=== PATIENT | female | born 1985 | race Caucasian/White ===

== ENCOUNTER 2016-11-12 06:29 | Inpatient (IN) | payer OTHER ==
[2016-11-05 08:02] VITALS: BMI 32.0
--- NOTE | 2016-11-05 08:51 | PAT Medication Instructions ---
Service Date Nov 05, 2016. Current Home Medication List Mirtazapine Soltab (Remeron Soltab), 30 MG PO HS Pantoprazole (Protonix), 20 MG PO QAM Paroxetine (Paxil), 40 MG PO QAM Simvastatin (Zocor), 20 MG PO QAM Medication Instructions For Your Scheduled Surgery - Take the following medications the morning of surgery with a sip of water OTHERWISE NOTHING TO EAT OR DRINK AFTER MIDNIGHT: Paroxetine (Paxil), 40 MG PO QAM Simvastatin (Zocor), 20 MG PO QAM Pantoprazole (Protonix), 20 MG PO QAM - Take the following medications as scheduled the night before surgery: Mirtazapine Soltab (Remeron Soltab), 30 MG PO HS If you have any questions please call us at [phone] (Светлана Calle PA-C ) or [phone] or [phone]
[2016-11-05 09:39] LABS: BASO % 0.1 %; BASO ABS # 0.01 K/uL (0-0.2); COMPLETE YES; EOS % 0.5 %; HEMATOCRIT 43.8 % (37-47); IG% 0.3 %; LYMPH ABS # 1.89 K/uL (1.2-3.4); MEAN CELL VOLUME 92.4 fL (80-100); MEAN CORPUSCULAR HEMOGLOBIN 31.2 pg (25-34); MEAN CORPUSCULAR HGB CONC 33.8 g/dl (32-36); MEAN PLATELET VOLUME 10.7 fL (7.4-10.4); MONO % 9.3 %; NEUT % 69.8 %; PLATELET COUNT 141 K/uL (130-400); RED BLOOD COUNT 4.74 M/uL (4.2-5.4); WHITE BLOOD COUNT 9.46 K/uL (4.8-10.8)
--- NOTE | 2016-11-11 20:27 | HISTORY & PHYSICAL EXAMINATION ---
DATE OF ADMISSION: 11/12/2016 CHIEF COMPLAINT: Left ankle pain. HISTORY OF PRESENT ILLNESS: This is a patient who has had chronic left ankle pain. Previously, she had undergone a procedure for curettage and bone grafting of the tibia and talus. She had persistent worsening osteoarthritic changes of the left ankle and despite bracing and anti-inflammatory medicines, the pain has increased significantly and she is now being set up for an ankle fusion. PAST MEDICAL HISTORY: Hypercholesterolemia, anxiety and depression, history of diabetes, alcoholism, acid reflux, and obesity. FAMILY HISTORY: Noncontributory. SOCIAL HISTORY: The patient is a cigarette smoker. Denies alcohol use. She has been sober for approximately 2 years. PAST SURGICAL HISTORY: ORIF of left wrist and a left ankle surgery in 2014. ALLERGIES: No known drug allergies. CURRENT MEDICATIONS: Paxil, Remeron, simvastatin and Benadryl. OBJECTIVE PHYSICAL EXAMINATION: GENERAL: The patient is alert and oriented x3. She is in no acute distress. She is a well-dressed, well-nourished 30-year-old female. Her affect is appropriate. CARDIOVASCULAR: Heart has a regular rhythm and rate without murmurs. LUNGS: Clear to auscultation bilateral. EXTREMITIES: Dorsalis pedis, posterior tib pulse +2/4. Cap refill is less than 2 seconds. LYMPHATIC: No evidence of any swollen lymph nodes. MUSCULOSKELETAL: The patient has an antalgic gait favoring the left lower extremity. Upon inspection of left lower extremity, there is significant swelling noted. There is a well-healed surgical incision. The patient had limited range of motion and strength secondary to pain. There is crepitation noted with any range of motion of left ankle. NEUROLOGIC: Sensation normal and intact distally left ankle. X-RAY EXAM: Three views of the left ankle demonstrate severe osteoarthritic change of the left ankle. ASSESSMENT AND DIAGNOSIS: 1. Left ankle osteoarthritis. PLAN: Above assessment was discussed with the patient. At this time, it was recommended the patient undergo a left ankle fusion with possible iliac crest autograft harvest from the left side, also bone marrow aspirate harvest from the left iliac crest. All potential risks, benefits, complications, alternatives and rehab have been discussed with the patient. At this time, she wishes to proceed with the surgery as indicated. She will be scheduled for the surgery on 11/12/2016. JENNIFER
[~2016-11-12] VITALS: Ht 170.2 cm; Wt 93.4 kg
[~2016-11-12 06:29] MED LIST: BUPIVACAINE/EPINEPHRINE 0.25% 1:200,000 30 ML VIAL ONE; DEXAMETHASONE SOD INJ 4 MG/ML VIAL ONE; LACTATED RINGER'S 1000ML 1,000 ML IV SCH; MIRT30TA2 PO; PARO1TAB29 PO; PRT/20 PO; SIMV20TA2 PO
[2016-11-12] MEDS ORDERED: MIDAZOLAM HCL 1 MG/ML 2ML VIAL ONE (06:45)
[2016-11-12] MEDS ORDERED: FENTANYL CITRATE INJ 50 MCG/1 ML 2 ML VIAL ONE ×3 (06:45→10:51)
[2016-11-12 07:17] VITALS: BP 119/76; PULSE 99; TEMP 36.9; O2SAT 97; Ht 170.2 cm; Wt 93.4 kg
--- NOTE | 2016-11-12 07:29 | History & Physical Bridge Note ---
H&P Re-Evaluation Bridge Note: I have examined the patient, reviewed the History & Physical and in the interval since the performance of the History & Physical I have noted the following changes of clinical significance: No changes noted
[2016-11-12] MEDS ORDERED: CEFAZOLIN IV 2,000 MG/60 ML D5W IV ONE (07:47)
[2016-11-12] MEDS ORDERED: HYDROmorphone INJ 1 MG/ML SYR IV PRN (09:15)
[2016-11-12] MEDS ORDERED: ATROPINE SULFATE 0.1 MG/ML 5ML SYR IV PRN (09:15)
[2016-11-12] MEDS ORDERED: EpHEDrine SULFATE INJ 50 MG/ML AMP IV PRN (09:15)
[2016-11-12] MEDS ORDERED: ONDANSETRON INJ 2 MG/ML 2 ML VIAL IV PRN ×2 (09:15→11:45)
[2016-11-12] MEDS ORDERED: PROMETHAZINE HCL INJ 6.25 MG in SODIUM CHLORIDE 0.9% 50ML 50 ML IV PRN (09:15)
[2016-11-12] MEDS ORDERED: CALCIUM CHLORIDE 10% 10 ML SYR ONE (09:23)
[2016-11-12] MEDS ORDERED: LIDOCAINE HCL 2% 2 ML VIAL (20MG/ML) ONE (09:36)
[2016-11-12] MEDS ORDERED: SUCCINYLCHOLINE 100MG/5ML SYR IV ONE (09:36)
[2016-11-12] MEDS ORDERED: PROPOFOL IV EMULSION 10 MG/ML 20 ML VIAL IV ONE (09:36)
[2016-11-12] MEDS ORDERED: ALBUTEROL HFA INHALER 8.5 GM INH ONE (09:36)
[2016-11-12] MEDS ORDERED: ROCURONIUM BROMIDE 10 MG/ML 5 ML VIAL ONE (09:50)
[2016-11-12] MEDS ORDERED: MoRPHine SULFATE PF 1 MG/ML 10 ML AMP/VIAL ONE (10:13)
[2016-11-12] MEDS ORDERED: GELFOAM SIZE 100 TOP ONE (10:20)
[2016-11-12] MEDS ORDERED: THROMBIN 5,000 UNITS (BOVINE) TOP ONE ×2 (10:21→10:32)
[2016-11-12] MEDS ORDERED: CALCIUM CHLORIDE 10% XX ONE (10:27)
[2016-11-12] MEDS ORDERED: DURAMORPH 10 MG/10 ML INJ ONE (10:30)
[2016-11-12] MEDS ORDERED: BACITRACIN 50000 UNIT VIAL IR ONE (10:52)
[2016-11-12] MEDS ORDERED: BUPIVACAINE 0.5% W/EPI 1:200,000 INJ ONE (10:53)
--- NOTE | 2016-11-12 11:15 | [facility] Post Operative Brief Note ---
Immediate Operative Summary Operative Date Nov 12, 2016. Pre-Operative Diagnosis Left Ankle Degenerative Joint Disease, Avascular Necrosis Talus Post-Operative Diagnosis Left Ankle Degenerative Joint Disease, Avascular Necrosis Talus Procedure(s) Performed Left Ankle Arthrodesis with Autograft and Application of Arteriocyte Bone Marrow Aspirate, Left Iliac Crest Autograft [place], Left Bone Marrow Aspirate Left Iliac Crest Surgeon Dr. Silva House Mover Supervisor Surgeon(s) SERAFIN Cerda Estimated Blood Loss 25 ml Findings See Dict Specimens none per surgeon Drains HV x 1 Anesthesia GLMA w/ popliteal Complication(s) None Disposition Recovery Room / PACU
--- NOTE | 2016-11-12 11:21 | DIAGNOSTIC IMAGING REPORT ---
INTRAOPERATIVE LEFT ANKLE 2 VIEWS CLINICAL HISTORY: LT ANKLE ARTHODESIS COMPARISON STUDY: No previous studies for comparison. FINDINGS: 62 seconds of fluoroscopic time was utilized. 2 intraoperative fluoroscopic spot images are provided for interpretation. There are postsurgical changes of a left tibiotalar arthrodesis. There is been surgical resection of the distal fibula. Tibiotalar joint is traversed by 2 cannulated screws. IMPRESSION: Intraoperative radiographs demonstrating a left ankle arthrodesis. Electronically signed by: Lior Arshad M.D. 11/12/2016 11:19 AM Dictated Date/Time: 11/12/2016 11:18 AM
[2016-11-12] MEDS: FENTANYL CITRATE INJ 50 MCG/1 ML 2 ML VIAL IV PRN ×3 (11:30→11:40)
[2016-11-12] MEDS ORDERED: MoRPHine SULFATE 2 MG/ML CARP IV PRN (11:45)
[2016-11-12] MEDS ORDERED: MAGNESIUM HYDROXIDE SUSP 30 ML UDC PO PRN (11:45)
[2016-11-12] MEDS ORDERED: ALUMINUM/MAGNESIUM/SIMETH (MAALOX MAX) 30 ML UDC PO PRN (11:45)
[2016-11-12] MEDS ORDERED: ZOLPIDEM TARTRATE 5 MG TAB PO PRN (11:45)
[2016-11-12] MEDS ORDERED: BISACODYL 10 MG SUPP PR PRN (11:45)
[2016-11-12] MEDS ORDERED: OXYCODONE/ACETAMINOPHEN 5-325 TAB PO PRN (11:45)
[2016-11-12] MEDS ORDERED: SOD PHOSPHATE/SOD BIPHOSPHATE ENEMA 132 ML BTL PR PRN (11:45)
[2016-11-12] MEDS ORDERED: NO NSAIDS SCH (11:45)
--- NOTE | 2016-11-12 11:50 | Discharge Instructions ---
Discharge Instructions Admission Reason for Admission: Left Ankle Osteoarthritis Discharge Discharge Diagnosis / Problem: left ankle osteoarthritis Discharge Goals Goal(s): Decrease discomfort Activity Recommendations Activity Limitations: as noted below Lifting Limitations: until after follow-up appointment Exercise/Sports Limitations: until after follow-up appointment May Resume Sexual Activity: when tolerated Shower/Bathe: keep incision dry (Keep dressing/splint in place until follow up in 2 weeks. May remove pelvis dressing after 5 days.) Driving or Machine Use: No driving until pain meds are stopped. Weightbearing Status: Left non-weightbearing . Instructions / Follow-Up Instructions / Follow-Up ACTIVITY RECOMMENDATIONS: Limitations: No weight bearing to affected limb at all times. SPECIAL CARE INSTRUCTIONS: * Some drainage onto the dressing is normal and is no cause for alarm. * Some swelling is natural especially after walking. * When resting, keep your foot elevated above the level of your heart. * Call [facility] if you notice: -Increased drainage -Fever over 101 degrees F -Severe constant pain BANDAGE: * Leave bandage/cast in place unless otherwise directed. * Keep bandage/cast dry at all times. FOLLOW UP VISIT WITH DR. WHITFIELD If appointment is not already scheduled: Please call [facility] after you get home today to schedule a follow-up appointment for [address] Whitfield at . Current Hospital Diet Patient's current hospital diet: Regular Diet Discharge Diet Recommended Diet: Regular Diet Procedures Procedures Performed: Left Ankle Arthrodesis with Autograft and Application of Arteriocyte Bone Marrow Aspirate, Left Iliac Crest Autograft [place], Left Bone Marrow Aspirate Left Iliac Crest Pending Studies Studies pending at discharge: no Medical Emergencies . Who to Call and When: Medical Emergencies: If at any time you feel your situation is an emergency, please call 911 immediately. . Non-Emergent Contact Non-Emergency issues call your: Surgeon Call Non-Emergent contact if: temperature is above 101, your pain is not controlled, your pain is worsening, wound has increased drainage, wound has increased pain . "Provider Documentation" section prepared by Ángel Hardy. VTE Core Measure Inpt VTE Proph given/why not?: Other Anticoagulation (Aspirin 81 mg by mouth every 12 hours for 6 weeks.), T.E.D. Stockings
[2016-11-12] MEDS ORDERED: DiphenhydrAMINE HCL 50 MG/ML VIAL ONE (11:55)
--- NOTE | 2016-11-12 12:18 | OPERATIVE REPORT ---
DATE OF OPERATION: 11/12/2016 PREOPERATIVE DIAGNOSES: 1. Left ankle degenerative joint disease. 2. Avascular necrosis of the talus. POSTOPERATIVE DIAGNOSIS: Same. PROCEDURE: 1. Left ankle fusion with autograft and application bone marrow aspirate. 2. Left iliac crest bone graft harvest. 3. Left iliac crest bone marrow aspiration. SURGEON: Dr. Silva. OUTSIDE REPAIRER SPECIAL: Ángel Hardy PA-C who was present for patient positioning, sterile prep and drape, management of retractors and instruments. He was present through the critical portions of the case including wound closure, application of sterile dressing and transport of the patient to recovery. ANESTHESIA: General LMA with popliteal block. SPECIMENS: None. DRAINS: Hemovac x1. COMPLICATIONS: None. BLOOD LOSS: 25 mL. PERTINENT HISTORY: This is a 30-year-old female who had developed avascular necrosis of her left ankle and right ankle. She attempted conservative management, shoewear modification, activity modification, use of bracing, steroid injections, oral anti-inflammatories, topical analgesics and had both radiographic and MRI evidence of avascular necrosis of the talus with severe collapse. The patient had been scheduled for surgery as indicated. All potential risks, benefits, complications, alternatives, rehab, potential for incomplete relief of symptoms, need for further surgery, DVT, PE, , persistent pain, swelling, scarring, weakness, neurovascular injury, wound complications, hardware failure, bone fracture, nonunion or malunion were discussed with the patient. The patient decided to proceed with the procedure as indicated. OPERATION AND FINDINGS: PROCEDURE: The patient was administered a popliteal block in the preop holding area. She was then taken to the operative suite, placed supine on the operating room table. I reviewed the consent and identification of proper operative site, the patient was anesthetized, LMA was placed. Tourniquet was placed high on the left thigh over cast padding. Left lower extremity was then sterilely prepped and draped in usual fashion, elevated and exsanguinated with an Esmarch bandage and tourniquet inflated to 350 mmHg. Next, left iliac crest had also been sterilely prepped and draped in usual fashion. Next, a 15 blade scalpel was used to make an incision over the lateral aspect of the fibula. Incision was deepened through subcutaneous tissue. Meticulous hemostasis was achieved with electrocautery. Full thickness skin flaps were developed. The tibia was identified and dissected. Next, a sagittal saw was then used to resect the fibula at the level of the ankle mortise with appropriate retraction of the anterior and posterior soft tissue structures. Next, tibia was removed, split and then used to harvest bone graft for autograft. Next, the cervical lamina pantry chef was placed in the tibiotalar joint and then the delaminated articular cartilage from the talus was removed and the avascular necrotic bone was then removed from the talus and then the articular surface cartilage was then removed from the tibia, denuded down to subchondral bone. Next, the wound was copiously irrigated with sterile normal saline followed by creation of multiple drill holes with a small 2.0 mm drill bit in the tibia and the talus followed by fish scaling of the tibia and the talus. There was noted to be dorsal flattening and loss of the talar bone due to the avascular necrosis. Next, the wound was once again irrigated with sterile normal saline followed by injection in the left iliac crest with 0.5% Marcaine with epinephrine, 10 blade scalpel incision was made over the iliac crest extending proximally. Next, careful soft tissue dissection was performed to the fascia down to the level of the iliac crest. The periosteum was then incised, elevated medially and laterally and a small bone window was made with a Jamshidi needle. Next, marrow aspirate was withdrawn and then centrifuged down to the bone marrow aspirate. Next, the bone window was opened at the iliac crest with an osteotome and mallet. Cancellous bone was harvested and then the wound was irrigated and packed with Gelfoam and thrombin. The trap door of bone was then closed followed by closure of the fascia with #1 Vicryl. The dermis was closed using buried interrupted 2-0 Vicryl. The wound was injected with 0.5% Marcaine with epinephrine plus 1 mL of Duramorph. Next, the dermis was closed using buried interrupted 2-0 Vicryl, skin was closed with skin garcia. Sterile compressive dressing was applied to the left iliac crest. Next, the cancellous bone from the fibula, bone from the iliac crest and then bone marrow aspirate was then mixed in putty and then injected with thrombin. After this firmed this mixture was then packed into the tibiotalar joint fusion site, taking care to realign the talus as there was noted to be lateral bone loss of the talus. Next, the cervical lamina pantry chef was used to maintain the alignment of the tibiotalar joint with regard to varus, valgus and then bone was packed in and around the tibiotalar joint fusion followed by fusion of the arthrodesis site with two 7.3 mm cannulated screws placed under live fluoroscopic assistance. The guide pins were removed. Platelet poor plasma was placed as a sheeting over the lateral aspect of the fusion site and then the deep soft tissue was then closed using 2-0 Vicryl. Next, the dermis was closed using buried interrupted 3-0 Vicryl and this was also injected with platelet-poor plasma. Next, the skin was closed using 4-0 nylon. A sterile compressive dressing and bulky Tiago Valero plaster splint was applied after a 10 [place]ian Hemovac drain was inserted into the ankle joint. Next, an Tommy wrap was applied. The foot was held in neutral dorsiflexion. The tourniquet was released. The patient was awakened and taken to recovery in stable condition. I attest to the content of the Intraoperative Record and any orders documented therein. Any exceptio ns are noted below.
[2016-11-12] MEDS ORDERED: LORAZEPAM INJ 0.5 MG in SYRINGE 0.75 ML IV PRN (12:30)
[2016-11-12] MEDS ORDERED: LORAZEPAM 1 MG TAB PO PRN (12:30)
--- NOTE | 2016-11-12 12:43 | DIAGNOSTIC IMAGING REPORT ---
LEFT ANKLE 3 VIEWS CLINICAL HISTORY: Postoperative examination. Ankle fusion. FINDINGS: 3 portable views of the left ankle are obtained. No prior studies are available for comparison at the time of dictation. The skeletal structures appear well mineralized. The examination is performed through a cast, obscuring fine bony detail. No acute fracture is identified. The distal fibula is surgically absent. There is advanced arthritic change at the tibiotalar joint, with bony sclerosis and overgrowth as well as collapse of the talar dome. 2 cortical lag screws transfix the tibiotalar articulation. The orthopedic hardware appears intact. Overlying soft tissue edema is noted. IMPRESSION: 1. No acute fracture is identified. 2. Advanced arthritic change is seen at the tibiotalar joint with collapse of the talar dome as well as postoperative changes from surgical fusion. Orthopedic hardware appears intact. 3. The distal fibula is surgically absent. Electronically signed by: Bishop Bishop M.D. 11/12/2016 12:41 PM Dictated Date/Time: 11/12/2016 12:39 PM
[2016-11-12 12:45] VITALS: BP 113/75; PULSE 96; TEMP 36.9; O2SAT 98
--- NOTE | 2016-11-12 12:55 | Anesthesiology Progress Note ---
Anesthesia Post Op Note Date & Time Nov 12, 2016 at 12:51 Vital Signs Pain Intensity: 0 Vital Signs Past 12 Hours Date Time Temp Pulse Resp B/P Pulse Ox O2 Delivery O2 Flow Rate FiO2 11/12/16 12:30 37.2 100 16 118/80 97 Nasal Cannula 2 11/12/16 12:20 103 16 131/83 95 Nasal Cannula 2 11/12/16 12:10 100 16 117/84 97 Nasal Cannula 2 11/12/16 12:00 104 16 136/81 97 Nasal Cannula 2 11/12/16 11:50 102 14 127/80 100 Mask 10 11/12/16 11:40 112 14 136/91 100 Mask 10 11/12/16 11:30 114 19 145/100 100 Mask 10 11/12/16 11:22 36.7 121 18 152/98 100 Mask 10 11/12/16 07:17 36.9 99 18 119/76 97 Room Air Notes Mental Status: alert / awake / arousable, participated in evaluation Pt Amnestic to Procedure: Yes Nausea / Vomiting: adequately controlled Pain: adequately controlled Airway Patency, RR, SpO2: stable & adequate BP & HR: stable & adequate Hydration State: stable & adequate Anesthetic Complications: no major complications apparent Block working well in PACU. Patient c/o myalgias "all over" which are likely related to succinylcholine. LMA needed to be replaced during case to ETT for inability for significant tidal volumes with LMA and succinylcholine was used. In addition, patient c/o her tongue being swollen. On exam, the tongue was normal appearing. She was having normal and non labored respirations and oxygen saturations were adequate. She showed no overt signs of allergic reaction, however a 25 mg dose of IV benadryl was given to treat any mild hypersensitivity she may have been experiencing.
[2016-11-12 13:19] VITALS: BP 108/72; PULSE 89; O2SAT 97
[2016-11-12] MEDS: ACETAMINOPHEN 500 MG TAB PO SCH ×2 (13:27→20:29)
[2016-11-12] MEDS ORDERED: IV FLUIDS COMPLETED PRN (13:45)
[2016-11-12 13:48] VITALS: BP 122/87; PULSE 97; O2SAT 98
[2016-11-12] MEDS: POTASSIUM CHLORIDE INJ 10 MEQ in SODIUM CHLORIDE 0.9% 1000ML 1,000 ML IV SCH ×2 (14:04→23:33)
--- NOTE | 2016-11-12 14:10 | Medical Consult ---
Consultation Date of Consultation: Nov 12, 2016. Attending Physician: Jamil Silva D.O. History of Present Illness This is a 30 yo F with PMHx hyperlipidemia, alcoholism, chronic tobacco use, diabetes, acid reflux, obesity, anxiety and depression. She has previously had chronic left ankle pain and undergone a procedure for curettage and bone graft of the tibia and talus. The patient elected to undergo ankle fusion since bracing and antiinflammatory medications were not helpful. She is now s/p Left ankle fusion with autograft and application bone marrow aspirate, Left iliac crest bone graft harvest, and Left iliac crest bone marrow aspiration.\ Pt was seen and examined, she takes a little while to wake up, but does eventually start talking and answering all my questions appropriately. She complains of pain in her left ankle. She denies any other issues currently, no chest pain, shortness of breath, abdominal pain, lightheadedness, dizziness. Her mother and father come in at the end of my exam. They are requesting to speak with Dr. Silva about the surgery. Social History Smoking Status: Current Every Day Smoker Smokeless Tobacco Use: No Alcohol Use: Previously heavy, has been sober for 2 years Marital Status: single Housing Status: lives with family Allergies Coded Allergies: No Known Allergies (Unverified , 11/12/16) Current Inpatient Medications Current Inpatient Medications Medications (Trade) Dose Ordered Sig/Adriana Route Start Time Stop Time Status Last Admin Dose Admin Fentanyl Citrate (Fentanyl Inj) 50 mcg Q5M PRN IV 11/12/16 09:15 11/12/16 14:15 11/12/16 11:40 50 MCG Hydromorphone HCl (Dilaudid Inj) 0.5 mg Q5M PRN IV 11/12/16 09:15 11/12/16 14:15 Ondansetron HCl 4 mg 4 mg ONE PRN IV 11/12/16 09:15 11/12/16 14:15 11/12/16 12:05 4 MG Promethazine HCl/ Sodium Chloride (Phenergan Inj/ Nss 50ml) 50.25 ml @ 202 mls/hr ONE PRN IV 11/12/16 09:15 11/12/16 14:15 Ephedrine Sulfate (EpHEDrine SULFATE INJ) 5 mg Q5M PRN IV 11/12/16 09:15 11/12/16 14:15 Atropine Sulfate (Atropine Sulfate 0.1MG/Ml Inj) 0.5 mg Q1M PRN IV 11/12/16 09:15 11/12/16 14:15 Paroxetine HCl (pAXil TAB) 40 mg QAM PO 11/13/16 09:00 12/13/16 08:59 Simvastatin (Zocor Tab) 20 mg QAM PO 11/13/16 09:00 12/13/16 08:59 Mirtazapine (Remeron Solutab) 30 mg HS PO 11/12/16 21:00 12/12/16 20:59 Pantoprazole Sodium 40 mg 40 mg QAM PO 11/13/16 09:00 12/13/16 08:59 Potassium Chloride/Sodium Chloride (KCl Inj/Nss 1000ml) 1,005 ml @ 100 mls/hr Q10H3M IV 11/12/16 13:30 12/12/16 11:40 Miscellaneous Medication (No Nsaids) 1 ea UD N/A 11/12/16 11:45 12/12/16 11:44 Oxycodone HCl (Roxicodone Immediate Rel Tab) 1-2 TABS FOR PAIN 1 TABLET ... Q4H PRN PO 11/12/16 11:45 11/26/16 11:44 Oxycodone/ Acetaminophen (Percocet 5-325MG Tab) 1-2 TABLETS 1 TABLET ... Q6H PRN PO 11/12/16 11:45 11/26/16 11:44 Morphine Sulfate (MoRPHine SULFATE INJ) 1 mg Q1HWA PRN IV 11/12/16 11:45 11/26/16 11:44 Acetaminophen (Tylenol Tab) 1,000 mg Q8H PO 11/12/16 14:00 12/12/16 11:44 Magnesium Hydroxide (Milk Of Magnesia Susp) 30 ml Q6H PRN PO 11/12/16 11:45 12/12/16 11:44 Bisacodyl (Dulcolax Supp) 10 mg DAILY PRN [place] 11/12/16 11:45 12/12/16 11:44 Sodium Biphosphate/ Sodium Phosphate (Fleet Enema) 132 ml DAILY PRN [place] 11/12/16 11:45 12/12/16 11:44 Senna (Senokot Tab) 17.2 mg HS PO 11/12/16 21:00 12/12/16 20:59 Docusate Sodium (coLACE CAP) 100 mg BID PO 11/12/16 21:00 12/12/16 20:59 Diphenhydramine HCl (Benadryl Cap) 25 mg Q8H PRN PO 11/12/16 11:45 12/12/16 11:44 Al Hydrox/Mg Hydrox/Simethicone (Maalox Max Susp) 15 ml Q4H PRN PO 11/12/16 11:45 12/12/16 11:44 Zolpidem Tartrate (Ambien Tab) 5 mg HSZ PRN PO 11/12/16 11:45 12/12/16 11:44 Multivitamins (Multivitamin Tab) 1 tab QAM PO 11/13/16 09:00 12/13/16 08:59 Ondansetron HCl 4 mg 4 mg Q6H PRN IV 11/12/16 11:45 12/12/16 11:44 Cefazolin Sodium/ Dextrose (Ancef Iv/D5 50ml) 60 ml @ 100 mls/hr Q8H IV 11/12/16 16:00 11/13/16 00:35 Aspirin (Ecotrin Tab) 81 mg Q12 PO 11/12/16 21:00 12/12/16 20:59 Lorazepam 1 mg 1 mg Q6 PRN PO 11/12/16 12:30 12/12/16 12:29 Lorazepam/Syringe (Ativan Inj/ Syringe) 1 ml @ 0.5 mls/min Q6 PRN IV 11/12/16 12:30 12/12/16 12:29 Review of Systems Constitutional: No chills, No fever, No sweats Eyes: No diplopia ENT: No sore throat, No tinnitus Respiratory: No cough, No shortness of breath, No wheezing Cardiovascular: No chest pain, No palpitations Abdomen: No constipation, No diarrhea, No nausea, No pain, No vomiting Musculoskeletal: + joint pain, + problem reported (left ankle pain. ) Genitourinary - Female: No dysuria Neurologic: + problem reported (numbness of the left toes. ), No weakness Psychiatric: + anxiety, + depression symptoms Integumentary: No itch, No rash Physical Exam Date Time Temp Pulse Resp B/P Pulse Ox O2 Delivery O2 Flow Rate FiO2 11/12/16 13:19 89 17 108/72 97 Nasal Cannula 2.0 11/12/16 12:30 37.2 100 16 118/80 97 Nasal Cannula 2 11/12/16 12:20 103 16 131/83 95 Nasal Cannula 2 11/12/16 12:10 100 16 117/84 97 Nasal Cannula 2 11/12/16 12:00 104 16 136/81 97 Nasal Cannula 2 11/12/16 11:50 102 14 127/80 100 Mask 10 11/12/16 11:40 112 14 136/91 100 Mask 10 11/12/16 11:30 114 19 145/100 100 Mask 10 11/12/16 11:22 36.7 121 18 152/98 100 Mask 10 11/12/16 07:17 36.9 99 18 119/76 97 Room Air General Appearance: WD/WN, no apparent distress, + pertinent finding ( overweight, BMI 32.2. Lethargic at beginning of exam) Head: normocephalic, atraumatic Eyes: PERRL, EOMI ENT: hearing grossly normal, pharynx normal Neck: no JVD Respiratory/Chest: lungs clear, normal breath sounds, no respiratory distress, no accessory muscle use Cardiovascular: + tachycardia, + pertinent finding (regular rhythm, S1, S2. no MRGs) Abdomen/GI: normal bowel sounds, non tender, soft Back: normal inspection, + pertinent finding (large tatoo over upper back) Extremities/Musculoskelatal: + pertinent finding (LLE wrapped in IVA, elevated , ice pack on. Dressing c/d/i. ) Neurologic/Psych: alert, oriented x 3 Skin: normal color, warm/dry Laboratory Results Last 24 Hours Test 11/12/16 07:02 Assessment & Plan S/p Left ankle fusion with autograft and application bone marrow aspirate / 2. Left iliac crest bone graft harvest / Left iliac crest bone marrow aspiration. - POD # 0, performed by Dr. Silva - Pain management and anticoagulation per the primary service - Roxicodone 5 mg PO, Percocet 5 mg PO - ASA 81 mg q12 H - Ice and elevation - PT/OT consults - Family asking for work excuse and for updates from Dr. Silva- nursing notified to ask the primary service Depression/ Anxiety - Cont CHIPPER paxil 40 mg QAM, ativan 1 mg PO q 6H prn, ativan 0.5 mg IV Q6h prn - Cont Ambien for sleep Elevated blood glucose - Spot checked = 140 post-op, ? if elevated due to steriod administration prior to surgery - The patient is not currently diagnosed with DM, will order accuchecks ACHS and check A1C with morning labs. - For now can have regular diet. Hyperlipidemia - Cont simvistatin Alcoholism - Has been sober x 2 years. Continued cessation encouraged Tobacco Abuse - Nicotine patch ordered prn - Cessation encourage DVT ppx: ASA 81 mg BID per primary service, Srinath RLRoshan CODE STATUS: Full code Dispostion: From home, CM to assist with d/c planning and home health set up. Assessment and Plan Attending Addendum: I have physically seen and examined this patient and agree with the H&P as noted by the PA above.
[2016-11-12 14:54] VITALS: BP 122/76; PULSE 91; O2SAT 98
[2016-11-12 15:14] VITALS: BP 108/73; PULSE 84; TEMP 36.8; O2SAT 98
[2016-11-12] MEDS: CEFAZOLIN IV 2,000 MG in DEXTROSE 5% 50ML 50 ML IV SCH ×2 (16:41→23:33)
[2016-11-12] MEDS: OXYCODONE HCL IR 5 MG TAB (IMMEDIATE RELEASE) PO PRN ×2 (18:58→20:28)
[2016-11-12] MEDS: ASPIRIN 81 MG ECTAB PO SCH (20:28)
[2016-11-12] MEDS: DOCUSATE SODIUM 100 MG CAP PO SCH (20:28)
[2016-11-12] MEDS ORDERED: SENNA 8.6 MG TAB PO SCH (21:00)
[2016-11-12] MEDS ORDERED: MIRTAZAPINE SOLTAB 15 MG PO SCH (21:00)
[2016-11-13] VITALS (7 sets, daily range): BP systolic 104–122; BP diastolic 66–70; PULSE 74–98; TEMP 36.8–37.1; O2SAT 89–98
[2016-11-13] MEDS: OXYCODONE HCL IR 5 MG TAB (IMMEDIATE RELEASE) PO PRN ×3 (03:58→12:23)
[2016-11-13] MEDS: ACETAMINOPHEN 500 MG TAB PO SCH (05:34)
[2016-11-13 06:58] LABS: HEMATOCRIT 37.6 % (37-47); MEAN CELL VOLUME 94.7 fL (80-100); MEAN CORPUSCULAR HEMOGLOBIN 30.5 pg (25-34); MEAN CORPUSCULAR HGB CONC 32.2 g/dl (32-36); MEAN PLATELET VOLUME 10.8 fL (7.4-10.4); PLATELET COUNT 107 K/uL (130-400); RED BLOOD COUNT 3.97 M/uL (4.2-5.4); WHITE BLOOD COUNT 11.89 K/uL (4.8-10.8)
--- NOTE | 2016-11-13 07:16 | Orthopedic Progress Note ---
Orthopedic Progress Note Date of Service Nov 13, 2016. Subjective Post OP Day: 1 Reports: feeling well, pain controlled w PO medications, Denies: SOB, calf pain , chest pain, complaints, light headedness, nausea / vomiting Objective N/V intact, splint C/D/I, capillary refill less than 2 sec., dressing C/D/I, A& O x3, toes mobile Date Time Temp Pulse Resp B/P Pulse Ox O2 Delivery O2 Flow Rate FiO2 11/13/16 06:03 92 Nasal Cannula 2.0 11/13/16 03:52 36.8 98 16 110/70 89 Room Air 11/13/16 00:19 36.9 96 18 104/66 90 Room Air 11/12/16 23:35 Room Air 11/12/16 16:10 Nasal Cannula 2.0 11/12/16 15:14 36.8 84 18 108/73 98 Nasal Cannula 3.0 11/12/16 14:54 91 18 122/76 98 2.0 11/12/16 13:48 97 17 122/87 98 Nasal Cannula 2.0 11/12/16 13:19 89 17 108/72 97 Nasal Cannula 2.0 11/12/16 12:45 98 Nasal Cannula 2.0 11/12/16 12:45 98 Nasal Cannula 2.0 11/12/16 12:45 36.9 96 16 113/75 98 Nasal Cannula 2.0 11/12/16 12:30 37.2 100 16 118/80 97 Nasal Cannula 2 11/12/16 12:20 103 16 131/83 95 Nasal Cannula 2 11/12/16 12:10 100 16 117/84 97 Nasal Cannula 2 11/12/16 12:00 104 16 136/81 97 Nasal Cannula 2 11/12/16 11:50 102 14 127/80 100 Mask 10 11/12/16 11:40 112 14 136/91 100 Mask 10 11/12/16 11:30 114 19 145/100 100 Mask 10 11/12/16 11:22 36.7 121 18 152/98 100 Mask 10 11/12/16 07:17 36.9 99 18 119/76 97 Room Air Laboratory Results 24 Hours: Test 11/13/16 06:46 Hematocrit 37.6 % Hemoglobin 12.1 g/dL Assessment & Plan Assessment: POD #1 Left ankle fusion with autograft and application bone marrow aspirate, Left iliac crest bone graft harvest, Left iliac crest bone marrow aspiration -will plan for discharge home later today if medically stable Discharge Planning Discharge Planning: home
[2016-11-13] MEDS ORDERED: CLC100 PO (07:22)
[2016-11-13] MEDS ORDERED: ASPEC81 PO (07:22)
[2016-11-13] MEDS ORDERED: PROM1SUP17 PO (07:22)
[2016-11-13] MEDS ORDERED: OXYC-57 PO (07:22)
[2016-11-13 07:23] LABS: BUN/CREATININE RATIO 11.7 (10-20); CALCIUM 7.5 mg/dl (8.5-10.1); CREATININE 0.86 mg/dl (0.60-1.20); POTASSIUM 4.1 mmol/L (3.5-5.1)
[2016-11-13 08:51] LABS: ESTIMATED AVERAGE GLUCOSE 111 mg/dl; HA1C FLAG Normal (Normal)
[2016-11-13] MEDS ORDERED: PAROXETINE 20 MG TAB PO SCH (09:00)
[2016-11-13] MEDS ORDERED: SIMVASTATIN 20 MG TAB PO SCH (09:00)
[2016-11-13] MEDS ORDERED: PANTOprazole SOD 40 MG TAB PO SCH (09:00)
[2016-11-13] MEDS ORDERED: NICOTINE 7 MG/24 HR TDSY TD SCH (09:00)
[2016-11-13] MEDS ORDERED: MULTIVITAMIN TAB PO SCH (09:00)
[2016-11-13] MEDS: ASPIRIN 81 MG ECTAB PO SCH (09:18)
[2016-11-13] MEDS: DOCUSATE SODIUM 100 MG CAP PO SCH (09:19)
[2016-11-13] MEDS: POTASSIUM CHLORIDE INJ 10 MEQ in SODIUM CHLORIDE 0.9% 1000ML 1,000 ML IV SCH (09:36)
--- NOTE | 2016-11-16 14:50 | Discharge Summary ---
Orthopedic Discharge Summary Admission Date/Reason Nov 12, 2016 at 11:41 Left Ankle Osteoarthritis. Discharge Date/Disposition Nov 13, 2016 Home Diagnosis Principal Diagnosis: left ankle osteoarthritis Procedure(s) Performed 1. Left ankle fusion with autograft and application bone marrow aspirate. 2. Left iliac crest bone graft harvest. 3. Left iliac crest bone marrow aspiration Consultations Medicine Medication Reconciliation New Medications: Promethazine HCl (Phenergan) 25 Mg Sup 25 MG PO Q6 for Nausea, #20 Aspirin (Aspirin EC Low Dose) 81 Mg Ectab 81 MG PO Q12 for 30 Days Docusate Sodium (Docusate Sodium) 100 Mg Cap 100 MG PO BID for 15 Days, #30 CAP Oxycodone/Acetaminophen 5MG/325MG (Percocet 5MG/325MG) Tab 1-2 TAB PO Q6H PRN for Pain, #60 TAB PAIN Continued Medications: Mirtazapine Soltab (Remeron Soltab) 30 Mg Soltab 30 MG PO HS, TAB Pantoprazole (Protonix) 20 Mg Tab 20 MG PO QAM Paroxetine (Paxil) 40 Mg Tab 40 MG PO QAM, TAB Simvastatin (Zocor) 20 Mg Tab 20 MG PO QAM, TAB Admission Physical Exam As per Admitting History & Physical. Hospital Course The patient was admitted on .04.23 and underwent the above procedure. She was kept overnight for pain control, particularly of the left iliac crest bone graft site. On POD #1, she was maintaining her NWB on the LLE and her pain was controlled. She was then d/c'd home. Discharge Instructions Please refer to the electronic Patient Visit Report (Discharge Instructions) for additional information. ACTIVITY RECOMMENDATIONS: Limitations: No weight bearing to affected limb at all times. SPECIAL CARE INSTRUCTIONS: * Some drainage onto the dressing is normal and is no cause for alarm. * Some swelling is natural especially after walking. * When resting, keep your foot elevated above the level of your heart. * Call [facility] if you notice: -Increased drainage -Fever over 101 degrees F -Severe constant pain BANDAGE: * Leave bandage/cast in place unless otherwise directed. * Keep bandage/cast dry at all times. FOLLOW UP VISIT WITH DR. WHITFIELD If appointment is not already scheduled: Please call [facility] after you get home today to schedule a follow-up appointment for [address] Whitfield at .
== END 2016-11-13 13:45 | disposition home or self-care (01) | DRG 554 ==
LOC: ENRESERVTM → ENRESERVDT → C.ACU 06:29 → C.3E 11:41 → OBSVTOIN 11:47
PROVIDERS: ADMIT Orthopaedic Surgery Sports Medicine; ATTEND Orthopaedic Surgery Sports Medicine
DX: M19.072 Primary osteoarthritis, left ankle and foot (principal); E78.00 Pure hypercholesterolemia, unspecified; F41.8 Other specified anxiety disorders; E11.9 Type 2 diabetes mellitus without complications; F10.20 Alcohol dependence, uncomplicated; K21.9 Gastro-esophageal reflux disease without esophagitis; E66.9 Obesity, unspecified; F17.210 Nicotine dependence, cigarettes, uncomplicated

== ENCOUNTER → 2017-03-11 | Outpatient (CLI) | payer OTHER ==
[~2017-03-11] MED LIST changes: +ASPEC81 PO; -BUPIVACAINE/EPINEPHRINE 0.25% 1:200,000 30 ML VIAL ONE; +CLC100 PO; -DEXAMETHASONE SOD INJ 4 MG/ML VIAL ONE; -LACTATED RINGER'S 1000ML 1,000 ML IV SCH; +OXYC-57 PO; +PROM1SUP17 PO
[2017-03-15 04:24] LABS: CHLAMYDIA TRACH RNA*** NOT DETECTED (NOT DETECTED); GC (NEIS GONORRHOEAE)RNA** NOT DETECTED (NOT DETECTED)
== END | disposition home or self-care (01) ==
LOC: C.LABMFLN 13:55
PROVIDERS: ATTEND Physician Assistant
DX: Z72.51 High risk heterosexual behavior (principal)

== ENCOUNTER → 2017-05-19 | Outpatient (CLI) | payer OTHER ==
[2017-05-19 18:09] LABS: URINE APPEARANCE CLOUDY (CLEAR); URINE BILIRUBIN NEG (NEG); URINE COLOR DK YELLOW; URINE EPITHELIAL CELL AUTO 20-30 /lpf (0-5); URINE NITRITE POS (NEG); URINE SPECIFIC GRAVITY 1.008 (1.000-1.030); UROBILINOGEN NEG (NEG); ZZUR CULT IF INDIC CLEAN CATCH YES
[2017-05-19 18:37] LABS: MANUAL MICROSCOPIC REQUIRED? NO; REVIEW REQ? NO
== END | disposition home or self-care (01) ==
LOC: C.LABMFLN 05:51
PROVIDERS: ATTEND Family Medicine
DX: R82.90 Unspecified abnormal findings in urine (principal)

== ENCOUNTER → 2017-06-30 | Outpatient (CLI) | payer OTHER | END | disposition home or self-care (01) | LOC: C.LABMFLN 10:04 | PROVIDERS: ATTEND Family Medicine | DX: R30.0 Dysuria (principal); R82.90 Unspecified abnormal findings in urine ==

== ENCOUNTER → 2017-10-18 | Outpatient (CLI) | payer OTHER ==
[2017-10-21 01:20] LABS: CHLAMYDIA TRACH RNA*** NOT DETECTED (NOT DETECTED); GC (NEIS GONORRHOEAE)RNA** NOT DETECTED (NOT DETECTED)
== END | disposition home or self-care (01) ==
LOC: C.LABMFLN 09:44
PROVIDERS: ATTEND Family Medicine
DX: N89.8 Other specified noninflammatory disorders of vagina (principal); Z72.51 High risk heterosexual behavior; R82.90 Unspecified abnormal findings in urine